=== PATIENT | female | born 1965 | race Two or more races ===

== ENCOUNTER 2023-12-30 19:02 | Emergency (ER) | payer OTHER ==
[~2023-12-30] VITALS: Ht 167.6 cm; Wt 65.8 kg
[2023-12-30] MEDS ORDERED: CARBIDOPA-LEVO1 EA13 PO (19:16)
[2023-12-30] MEDS ORDERED: LORAZEPAM0.5 MG (19:16)
[2023-12-30] MEDS ORDERED: TRAZODONE HCL100 MG (19:16)
[2023-12-30] MEDS ORDERED: SERTRALINE HCL100 MG (19:17)
[2023-12-30] MEDS ORDERED: LACTULOSE 20 G/30 ML BLIST.PACK PO ONE (19:30)
[2023-12-30] MEDS ORDERED: MAGNESIUM HYDROXIDE 30 ML BLIST.PACK PO ONE (19:30)
[2023-12-30] MEDS ORDERED: MINERAL OIL 30 ML BLIST.PACK PO ONE (19:30)
[2023-12-30] MEDS ORDERED: MAG HYDROX/ALUMINUM HYD/SIMETH 30 ML BLIST.PACK PO ONE (19:36)
[2023-12-30] MEDS ORDERED: LACTULOSE 20 G/30 ML BLIST.PACK ONE (19:37)
[2023-12-30] MEDS ORDERED: MINERAL OIL 30 ML BLIST.PACK ONE (19:37)
[2023-12-30 20:04] LABS: HEMATOCRIT 43.3 % (36.0-45.00); HEMOGLOBIN 14.4 g/dL (12.0-15.00); MEAN CELL VOLUME 90.2 fL (80.00-100.00); MEAN CORPUSCULAR HGB CONC 33.2 g/dl (32.0-36.0); PLATELET COUNT 193 K/uL (150-450); RED CELL DISTRIBUTION WIDTH 13.2 % (11.5-14.5)
[2023-12-30 20:34] LABS: CALCIUM 9.2 mg/dL (8.5-10.1); CREATININE SERUM 0.58 mg/dL (0.55-1.02); GFR 107.15; POTASSIUM 3.45 mEq/L (3.5-5.1)
== END 2023-12-30 21:15 | disposition home or self-care (01) ==
LOC: ER 19:03
PROVIDERS: General Practice
DX: K59.00 Constipation, unspecified (principal); Z88.6 Allergy status to analgesic agent; Z91.041 Radiographic dye allergy status

== ENCOUNTER 2024-04-03 23:54 | Inpatient (IN) | payer OTHER ==
[~2024-04-03] VITALS: Ht 165.1 cm; Wt 59.0 kg
[~2024-04-03 23:54] MED LIST: CARBIDOPA-LEVO1 EA13 PO; LORAZEPAM0.5 MG; SERTRALINE HCL100 MG; TRAZODONE HCL100 MG
--- NOTE | 2024-04-04 00:13 | NUR ---
SE RECIBE FEMINA ALERTA Y ORIENTADA X3 QUIEN REFIERE LLEVA VARIOS FREDERICK PRESENTANDO INAPETENCIA Y NAUSEAS. REFIERE VENIR EN LA NOCHE DE HOY DEBIDO A QUE PRESENTO CAMBIOS EN VISION Y SOLOMON DOLOR DE SHIRAZ, ADEMAS DE DEBILIDAD GENERALIZADA. SE MIDEN S/V Y SE UBICA.
[2024-04-04] MEDS ORDERED: FAMOTIDINE/PF 20 MG/2 ML VIAL IV PUSH STA (01:46)
[2024-04-04] MEDS ORDERED: ONDANSETRON HCL 2 MG/ML VIAL IV STA (01:46)
[2024-04-04] MEDS ORDERED: PROMETHAZINE HCL 25 MG/ML AMPUL IM STA (01:50)
[2024-04-04] MEDS ORDERED: 0.9 % SODIUM CHLORIDE 1,000 ML IV ONE (02:00)
[2024-04-04 02:37] LABS: HEMATOCRIT 45.5 % (36.0-45.00); HEMOGLOBIN 15.1 g/dL (12.0-15.00); MEAN CELL VOLUME 88.3 fL (80.00-100.00); MEAN CORPUSCULAR HEMOGLOBIN 29.4 pg (27.00-32.0); MEAN CORPUSCULAR HGB CONC 33.3 g/dl (32.0-36.0); PLATELET COUNT 153 K/uL (150-450); RED BLOOD COUNT 5.15 M/uL (4.00-6.00); RED CELL DISTRIBUTION WIDTH 13.4 % (11.5-14.5)
[2024-04-04] MEDS ORDERED: LORazepam 2 MG/ML VIAL IV PUSH STA (02:41)
--- NOTE | 2024-04-04 02:57 | NUR ---
SE EDUCA A PACIENTE SOBRE TRATAMIENTO MEDICO EL CUAL AL MOMENTO REFIERE ENTENDER. SE PROCEDE A SHAHZAD MUESTRAS DE LAB BAJO MEDIDAS ASEPTICAS Y ADMINISTRAR MEDICAMENTO SONIA ORDEN MEDICA.
[2024-04-04 03:06] LABS: INR 1.33; PARTIAL THROMBOPLASTIN TIME 26.1 SECONDS (22.0-34.0); PROTHROMBIN TIME 14.2 SECONDS (9.0-11.5)
[2024-04-04 03:10] LABS: AMYLASE 26 U/L (25-115); LIPASE 14 U/L (13-75)
[2024-04-04 03:13] LABS: ALBUMIN 3.3 gm/dL (3.4-5.0); ALKALINE PHOSPHATASE 96 U/L (50-136); ANION GAP 16 (10.0-20.0); AST/SGOT 5 U/L (15-37); BILIRUBIN TOTAL 0.87 mg/dL (0.3-1.2); BLOOD UREA NITROGEN 14 mg/dL (7-18); BUN CREA RATIO 21 (7.0-25.0); CALCIUM 8.9 mg/dL (8.5-10.1); CARBON DIOXIDE 23 mEq/L (21-32); CHLORIDE 99 mmol/L (98-107); CREATININE SERUM 0.67 mg/dL (0.55-1.02); GFR 90.72; GLOBULINA 3.3 G/DL (2.4-3.5); GLUCOSE FASTING 146 mg/dL (65-100); OSMOLALITY SERUM 273 MOSM/KG (275-295); POTASSIUM 3.31 mEq/L (3.5-5.1); SODIUM 135 mmol/L (136-145); TOTAL PROTEIN 6.6 gm/dL (6.4-8.2)
[2024-04-04 03:24] LABS: ALT/SGPT < 6 U/L (12-78)
--- NOTE | 2024-04-04 07:19 | NUR ---
SE RECIBE PTE FEMENINA DE 58 YRS ALERTA CONCIETNE Y TRANQUILO, EN [place] CON BARBADAS ELEVADA, SE OBSERVA CON MONITOR CARDIACO Y OXIMENTRIA. PTE CONSULTADA CON EL , ANGELA MEDICINA INTERNA. SE OBSERVA PTE CON FAMILIAR. SE MANTIENE BAJO OBSERVACION
[2024-04-04 08:26] VITALS: BP 149/83
[2024-04-04] MEDS ORDERED: BUTALB/ACETAMINOPHEN/CAFFEINE 1 TAB TABLET PO ONE (09:15)
[2024-04-04] MEDS ORDERED: LevETIRAcetam 500 MG/5 ML VIAL IV ONE (09:15)
[2024-04-04] MEDS ORDERED: LORazepam 2 MG/ML VIAL IV ONE (09:30)
--- NOTE | 2024-04-04 09:55 | NUR ---
SE RECIBE PTE FEMENINA DE 58 YRDE ALERTA Y SEDADA CON ATIVAN POR CONVULCIONES . SE LE PETER S/V Y SEOBSERVA PYTE CON .9NSS BAJANDO A 150 ML HRS Y MONITOR CARDIACO. SE LE CONSULTA A PTE CON MEDICINA INTERNA. SE LE ADMINISTRA KEPRRA A PTE POR CONVULCIONES . POR ORDEN MEDICA.SE MANTIENE BAJO OBSERVACION.
[2024-04-04] MEDS ORDERED: LevETIRAcetam 500 MG/5 ML VIAL IV SCH (10:58)
[2024-04-04] MEDS ORDERED: 0.9 % SODIUM CHLORIDE 1,000 ML IV SCH (11:00)
[2024-04-04] MEDS ORDERED: POTASSIUM CHLORIDE 10 MEQ CAPSULE PO ONE (11:15)
[2024-04-04] MEDS ORDERED: POTASSIUM CHLORIDE 20MEQ/100ML H2O PB IV ONE (11:30)
[2024-04-04 12:25] LABS: ALBUMIN 2.8 gm/dL (3.4-5.0); MAGNESIUM 2.2 mg/dL (1.8-2.4)
[2024-04-04 15:09] VITALS: BP 150/83; O2SAT 98
[2024-04-04 16:49] LABS: URINE APPEARANCE Clear; URINE BILIRRUBIN Small (NEGATIVE); URINE BLOOD Large; URINE COLOR Dark Yellow; URINE GLUCOSE Negative (NEGATIVE); URINE KETONE Trace (NEGATIVE); URINE LEUKOCYTE Negative; URINE NITRATE Negative
[2024-04-04 16:53] LABS: URINE BACTERIA 85.6 uL (0.0-1933); URINE CAST 1.98 uL (0.0-1.40); URINE EPITHELIAL CELLS 14.3 uL (0.0-38.8); URINE RBC 299.2 uL (0.0-20.8); URINE WBC 14.9 uL (0.0-23.2)
[2024-04-04 17:13] LABS: URINE MUCUS MODERATE; URINE PROTEIN 100 (NEGATIVE)
[2024-04-04 18:21] VITALS: O2SAT 94
[2024-04-04 19:12] VITALS: BP 148/78; O2SAT 97
[2024-04-04 21:55] VITALS: O2SAT 98
[2024-04-05] VITALS (8 sets, daily range): BP systolic 132–151; BP diastolic 85–100; O2SAT 88–97
[2024-04-05 07:18] LABS: ALBUMIN 2.6 gm/dL (3.4-5.0); BILIRUBIN TOTAL 1.1 mg/dL (0.3-1.2); CALCIUM 8.3 mg/dL (8.5-10.1); CREATININE SERUM 0.58 mg/dL (0.55-1.02); GFR 107.15; GLOBULINA 3.2 G/DL (2.4-3.5); POTASSIUM 3.65 mEq/L (3.5-5.1); TOTAL PROTEIN 5.8 gm/dL (6.4-8.2)
[2024-04-05] MEDS ORDERED: METOPROLOL SUCCINATE 25 MG TAB.SR.24H PO SCH ×2 (13:33→16:00)
[2024-04-05] MEDS ORDERED: METOPROLOL TARTRATE 5MG/5ML AMPUL IV NR (14:30)
[2024-04-05] MEDS ORDERED: NOREPINEPHRINE BITARTRATE 8 MG in DEXTROSE 5 % IN WATER 250 ML IV SCH (19:15)
[2024-04-05] MEDS ORDERED: HYDROCORTISONE SODIUM SUCC/PF 100 MG VIAL IV SCH (19:44)
[2024-04-05] MEDS ORDERED: CEFTRIAXONE SODIUM 2,000 MG VIAL IV SCH (19:45)
[2024-04-05 23:24] LABS: ABG PH 7.393 (7.35-7.45); ABG PO2 63.9 mmHg (80-100); ABG pCO2 25.4 mmHg (35-45); BASE EXCESS -7.8 mmol/l; BICARBONATE 15.1 mmol/l (23-25); SaO2 91.4 %; Tco2 15.9 mmol/l; o2 36 %
[2024-04-05 23:25] LABS: allen test SATISFACTORY; puncture site RADIAL RIGHT
[2024-04-06] VITALS (8 sets, daily range): BP systolic 160–178; BP diastolic 76–120; O2SAT 90–99
[2024-04-06 08:28] LABS: ALBUMIN 2.5 gm/dL (3.4-5.0); BILIRUBIN TOTAL 1.45 mg/dL (0.3-1.2); CALCIUM 8.3 mg/dL (8.5-10.1); CREATININE SERUM 1.21 mg/dL (0.55-1.02); GFR 45.86; GLOBULINA 3.1 G/DL (2.4-3.5); POTASSIUM 4.1 mEq/L (3.5-5.1); TOTAL PROTEIN 5.6 gm/dL (6.4-8.2)
[2024-04-06] MEDS ORDERED: HYDROCORTISONE SODIUM SUCC/PF 50 MG/ML ML IV SCH (09:00)
[2024-04-06 09:09] LABS: HEMATOCRIT 45.5 % (36.0-45.00); HEMOGLOBIN 15.4 g/dL (12.0-15.00); MEAN CELL VOLUME 88.8 fL (80.00-100.00); MEAN CORPUSCULAR HGB CONC 33.8 g/dl (32.0-36.0); RED BLOOD COUNT 5.12 M/uL (4.00-6.00); RED CELL DISTRIBUTION WIDTH 14.7 % (11.5-14.5)
[2024-04-06] MEDS ORDERED: CARBIDOPA/LEVODOPA 50/200 CR TABLET.SA PO SCH (10:13)
[2024-04-06] MEDS ORDERED: SERTRALINE HCL 100 MG TABLET PO SCH (10:14)
[2024-04-06 13:53] LABS: PLATELET COUNT 70 K/uL (150-450)
[2024-04-07] VITALS (11 sets, daily range): BP systolic 94–161; BP diastolic 32–82; O2SAT 93–99
[2024-04-07 07:56] LABS: HEMATOCRIT 35.5 % (36.0-45.00); MEAN CELL VOLUME 94.3 fL (80.00-100.00); MEAN CORPUSCULAR HGB CONC 34.3 g/dl (32.0-36.0); RED BLOOD COUNT 3.76 M/uL (4.00-6.00); RED CELL DISTRIBUTION WIDTH 13.8 % (11.5-14.5)
[2024-04-07 08:36] LABS: ALBUMIN 3.5 gm/dL (3.4-5.0); BILIRUBIN TOTAL 0.43 mg/dL (0.3-1.2); CALCIUM 9.4 mg/dL (8.5-10.1); CREATININE SERUM 0.59 mg/dL (0.55-1.02); GFR 105.06; GLOBULINA 4.3 G/DL (2.4-3.5); POTASSIUM 4.23 mEq/L (3.5-5.1); TOTAL PROTEIN 7.8 gm/dL (6.4-8.2)
[2024-04-07 09:45] LABS: HEMOGLOBIN 12.1 g/dL (12.0-15.00); MEAN CORPUSCULAR HEMOGLOBIN 32.1 pg (27.00-32.0)
[2024-04-07 09:47] LABS: PLATELET COUNT 310 K/uL (150-450)
[2024-04-07] MEDS ORDERED: HYDROCORTISONE SODIUM SUCC/PF 50 MG/ML ML IV SCH (17:00)
[2024-04-07] MEDS ORDERED: METOPROLOL TARTRATE 5MG/5ML AMPUL IV SCH (17:00)
[2024-04-07 18:42] LABS: ALBUMIN 2.6 gm/dL (3.4-5.0); BILIRUBIN TOTAL 3.23 mg/dL (0.3-1.2); CALCIUM 8.1 mg/dL (8.5-10.1); CREATININE SERUM 1.15 mg/dL (0.55-1.02); GFR 48.63; GLOBULINA 2.9 G/DL (2.4-3.5); POTASSIUM 4.64 mEq/L (3.5-5.1); TOTAL PROTEIN 5.5 gm/dL (6.4-8.2)
[2024-04-07] MEDS ORDERED: CLOPIDOGREL BISULFATE 75 MG TABLET PO SCH (19:03)
[2024-04-07] MEDS ORDERED: ASPIRIN 81 MG TAB.CHEW PO SCH (19:03)
[2024-04-07] MEDS ORDERED: NOREPINEPHRINE BITARTRATE 1 MG/ML AMPUL IV ONE (20:30)
[2024-04-08] MEDS ORDERED: ENOXAPARIN SODIUM 60 MG/0.6 ML SYRINGE SUBCUTANEO SCH (09:00)
[2024-04-08] MEDS ORDERED: ATORVASTATIN CALCIUM 40 MG TABLET PO SCH (09:00)
[2024-04-08] MEDS ORDERED: HYDROCORTISONE SODIUM SUCC/PF 50 MG/ML ML IV SCH (17:00)
== END 2024-04-07 23:11 | disposition expired | DRG 100 ==
LOC: ER 23:56 → MEDI 04-04 11:41 → MEDJ 04-04 11:41 → SEC-K 04-04 12:37 → MEDJ 04-04 14:34
PROVIDERS: General Practice; ADMIT Internal Medicine; ATTEND Internal Medicine
PROC: B020ZZZ Computerized Tomography (CT Scan) of Brain (ICD-10-PCS; principal; 2024-04-04)
PROC: B030ZZZ Magnetic Resonance Imaging (MRI) of Brain (ICD-10-PCS; 2024-04-04)
PROC: B030YZZ Magnetic Resonance Imaging (MRI) of Brain using Other Contrast (ICD-10-PCS; 2024-04-04)
PROC: 4A12X4Z Monitoring of Cardiac Electrical Activity, External Approach (ICD-10-PCS; 2024-04-04)
PROC: BF4CZZZ Ultrasonography of Hepatobiliary System, All (ICD-10-PCS; 2024-04-06)
DX: G40.909 Epilepsy, unspecified, not intractable, without status epilepticus (principal); I67.83 Posterior reversible encephalopathy syndrome; R57.8 Other shock; R09.2 Respiratory arrest; R41.82 Altered mental status, unspecified; G20.A1 Parkinson's disease without dyskinesia, without mention of fluctuations; F17.200 Nicotine dependence, unspecified, uncomplicated; F10.20 Alcohol dependence, uncomplicated; F19.10 Other psychoactive substance abuse, uncomplicated; Y90.9 Presence of alcohol in blood, level not specified
CPT/HCPCS: 70545